=== PATIENT | male | born 1990 | race Caucasian/White ===

== ENCOUNTER 2018-09-12 13:58 | Emergency (ER) | payer SELFPAY ==
[2018-09-12 14:04] VITALS: BP 136/79; PULSE 90; RESP 18; TEMP 36.4; O2SAT 97
--- NOTE | 2018-09-12 14:11 | DI.RAD.S_ITS ---
PROCEDURE: XR FINGER LT MIN 2V INDICATIONS: screw injury TECHNIQUE: AP hand, 2 views of the 3rd digit acquired. COMPARISON: None. FINDINGS: Bones: No fractures or dislocations. No suspicious bony lesions. Soft tissues: No radiopaque foreign body. No suspicious soft tissue calcifications. There is soft tissue swelling of the 3rd digit distally. IMPRESSION: 1. No fracture or radiopaque foreign body. Dictated by: Geremias Pearson M.D. on 09/12/2018 at 14:47 Approved by: Geremias Pearson M.D. on 09/12/2018 at 14:48
--- NOTE | 2018-09-12 15:28 | ED.UPPEXIN ---
HPI - Extremity Injury (Upper) <TERRA Reina - Last Filed: 09/12/18 22:24> General Chief Complaint: Extremity Injury, Upper Stated Complaint: L MIDDLE FINGER LAC Time Seen by Provider: 09/12/18 15:20 Source: patient Mode of arrival: ambulatory Limitations: no limitations History of Present Illness HPI narrative: 28-year-old male presents emergency department today complaining of a left 3rd finger laceration that occurred after attempting to screw 2 boards together, the screw was longer than the boards and came out the other causing a laceration to his finger. Patient states his last tetanus was last year, states bleeding is controlled and he was worried about bone injury. Denies numbness, tingling, excessive bleeding, decreased range of motion, erythema, or discharge from the wound. Related Data Home Medications Medication Instructions Recorded Confirmed ibuprofen 400 mg PO TID #0 03/29/16 Previous Rx's Medication Instructions Recorded hydrocodone-acetaminophen [[place]] 1 - 2 tab PO Q6H PRN #12 tab 03/29/16 Allergies Allergy/AdvReac Type Severity Reaction Status Date / Time No Known Allergies Allergy Uncoded 06/11/17 13:02 Review of Systems <TERRA Reina - Last Filed: 09/12/18 22:24> Review of Systems REVIEW OF SYSTEMS: GENERAL: Denies fever or chills. HENT: Denies head trauma. EYE: Denies double vision or vision loss. CARDIOVASCULAR: Denies syncope. MUSCULOSKELETAL: Denies weakness, or deformities. INTEGUMENTARY: Complains of laceration, see HPI. NEURO: Denies numbness or tingling. PFSH <TERRA Reina - Last Filed: 09/12/18 22:24> Medical History No significant medical problems (Acute) Social History Smoking Status: Current every day smoker Social History Smoking Status: Current every day smoker Exam <TERRA Reina - Last Filed: 09/12/18 22:24> Initial Vital Signs Initial Vital Signs: Vital Signs Temperature 97.5 F L 09/12/18 14:04 Pulse Rate 90 09/12/18 14:04 Respiratory Rate 18 09/12/18 14:04 Blood Pressure 136/79 09/12/18 14:04 Pulse Oximetry 97 09/12/18 14:04 PHYSICAL EXAMINATION: GENERAL: Well groomed, alert, and cooperative. Answers questions promptly and appropriately. Vital signs noted. HENT: Normocephalic, atraumatic. RESPIRATORY: Normal respiratory rate, trachea midline, airway patent. No stridor, nasal flaring or accessory muscle use. MUSCULOSKELETAL: Normal gait and coordination. Equal tone and mass bilaterally. Full range of motion of all fingers. EXTREMITIES: CMS intact. Moves all extremities. SKIN: Warm, dry, soft, appropriate color for ethnicity. 2cm laceration to left 3rd finger. Wound bed pink with coagulation present. Bleeding controlled. No surrounding erythema. Extensively irrigated with soap and water, area around the wound cleaned with Betadine, glue applied per patient request. Steri-Strips applied to reinforce area. NEURO: Alert and Oriented X 3. Good coordination. PSYCH: Appropriate affect and mood. <Brooklyn Blake DO - Last Filed: 09/15/18 18:44> Initial Vital Signs Initial Vital Signs: Vital Signs Temperature 97.5 F L 09/12/18 14:04 Pulse Rate 90 09/12/18 14:04 Respiratory Rate 18 09/12/18 14:04 Blood Pressure 136/79 09/12/18 14:04 Pulse Oximetry 97 09/12/18 14:04 Course <TERRA Reina - Last Filed: 09/12/18 22:24> Course Narrative: After discussion with patient at a stitch could be applied to the wound or glue could be applied patient stated he would rather have his finger glue. Orders Ordered: ED Orders 09/12/18 14:11 XR finger LT min 2V Stat Vital Signs - 8 hr 09/12/18 15:54 Pulse Rate 68 Respiratory Rate 18 Blood Pressure 130/87 Pulse Oximetry 98 <Brooklyn Blake DO - Last Filed: 09/15/18 18:44> Orders Ordered: ED Orders 09/12/18 14:11 XR finger LT min 2V Stat Vital Signs - 8 hr 09/12/18 15:54 Pulse Rate 68 Respiratory Rate 18 Blood Pressure 130/87 Pulse Oximetry 98 MDM - Extremity Injury (Upper) <Kamini JohnsonTERRA echavarria - Last Filed: 09/12/18 22:24> Medical Records Attestation: I reviewed the patient's medical records. Lab Data Attestation: I reviewed the patient's lab results. MDM Narrative Medical decision making narrative: Simple repair of simple laceration without evidence of infection. Follow-up instructions were given, return precautions are given. Discharge Plan Departure Patient Disposition: Home Clinical Impression: Finger laceration Qualifiers: Encounter type: initial encounter Finger: middle finger Damage to nail status: without damage Foreign body presence: without foreign body Laterality: left Qualified Code(s): S61.213A - Laceration without foreign body of left middle finger without damage to nail, initial encounter Discharge Date/Time: 09/12/18 15:55 Interventions: ED Discharge Assessment Last Done: 09/12/18 15:54 Instructions: DI for Laceration Repair Activity Restrictions/Additional Instructions: Thank you for entrusting me with your care today. As discussed, I placed glue and Steri-Strips on the wound. Do not pull anything off the wound. Do not get your hand wet for 24 hours. Please follow up with her primary care provider if needed. Return to the emergency department if you develops increased swelling, purulence discharge, fevers, chills, or other signs of infection. Prescriptions: No Action ibuprofen 400 MG tablet 400 mg PO TID Qty: 0 RF: 0 hydrocodone-acetaminophen [[place]] 5 MG/325 MG tablet 1 - 2 tab PO Q6H PRNQty: 12 RF: 0 <Brooklyn Blake DO - Last Filed: 09/15/18 18:44> Cosign ED Attending Cosignature Attestation: I was immediately available in the department for consultation. This documentation has been reviewed and I agree with assessment and plan. Supervised by Brooklyn Blake DO
[2018-09-12 15:54] VITALS: BP 130/87; PULSE 68; RESP 18; O2SAT 98
--- NOTE | 2018-09-12 15:56 | PC.NURSE ---
sterit strips and tube gauze applied
== END 2018-09-12 15:55 | disposition home or self-care (01) ==
PROVIDERS: Emergency Provider Nurse Practitioner
DX: S61.213A Laceration without foreign body of left middle finger without damage to nail, initial encounter (principal); W26.8XXA Contact with other sharp object(s), not elsewhere classified, initial encounter
CPT/HCPCS: 73140; 99283

== ENCOUNTER 2019-09-18 13:26 | Emergency (ER) | payer OTHER, MEDICAID, SELFPAY ==
[2019-09-18] VITALS (8 sets, daily range): BP systolic 133; BP diastolic 96; PULSE 61–98; RESP 22; TEMP 37.3; O2SAT 96–98
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
[2019-09-18] MEDS: IBUPROFEN 400 MG TABLET PO (14:21)
[2019-09-18] MEDS: OXYCODONE/ACETAMINOPHEN 5/325 TABLET 1 TAB PO ×2 (14:21→16:17)
[2019-09-18] MEDS: ACETAMINOPHEN 325 MG TABLET PO (14:22)
--- NOTE | 2019-09-18 14:35 | PC.NURSE ---
Patient c/o 9/10 pain, left top of foot, ankle and knee. Patient is restless, moaning, and cursing. Pulses palpable, no bruising noted but swelling is visible. Ice pack applied. Prescribed pain medications passed. Patient heading to XRAY at this time.
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
--- NOTE | 2019-09-18 15:12 | DI.CT.S_ITS ---
PROCEDURE: CT LE LT W CON INDICATIONS: left complex foot fracture TECHNIQUE: Noncontrast 1-1.5 mm axial sections acquired from above the tibiotalar joint to the bottom of the calcaneus, with coronal and sagittal reformats. COMPARISON: None. FINDINGS: Image quality: Excellent. Bones: There is a minimally displaced posterior malleolar fracture. Medial and lateral malleoli are intact. A small avulsion fracture is present off the posterior aspect of the talus. There is a comminuted, displaced fracture of the calcaneal beak. A fracture extends posteriorly to the medial aspect of the calcaneus posterior to the sustentacular lai. There is a markedly comminuted, displaced fracture of the navicular bone which has a shattered appearance. There is a comminuted, displaced fracture of the medial cuneiform which extends into the TMT joint space. No other fractures or dislocations. Soft tissues: Marked soft tissue swelling overlies the midfoot. There is a large tibiotalar joint effusion. IMPRESSION: 1. Multiple comminuted intra-articular fractures of the distal tibia, talus, calcaneus, navicular, and medial cuneiform bones. Dictated by: Roma Sanchez M.D. on 09/18/2019 at 15:45 Approved by: Roma Sanchez M.D. on 09/18/2019 at 15:52
--- NOTE | 2019-09-18 17:36 | PC.NURSE ---
Provided patient with crutches and instructed how to use them properly.
== END 2019-09-18 17:39 | disposition home or self-care (01) ==
PROVIDERS: Emergency Provider Nurse Practitioner Family
DX: S92.252A Displaced fracture of navicular [scaphoid] of left foot, initial encounter for closed fracture (principal); S92.032A Displaced avulsion fracture of tuberosity of left calcaneus, initial encounter for closed fracture; S82.302A Unspecified fracture of lower end of left tibia, initial encounter for closed fracture; S92.102A Unspecified fracture of left talus, initial encounter for closed fracture; V86.59XA Driver of other special all-terrain or other off-road motor vehicle injured in nontraffic accident, initial encounter
CPT/HCPCS: 73590; 73610; 73630; 73700; 99284

== ENCOUNTER → 2019-09-24 09:51 | Outpatient (CLI) | payer OTHER, SELFPAY ==
[2019-09-26 02:37] LABS: COVID19 Sendout Not Detected (Not Detect)
== END ==
PROVIDERS: Visit Provider Physician Assistant
DX: Z01.818 Encounter for other preprocedural examination (principal)
CPT/HCPCS: 87635

== ENCOUNTER 2019-09-27 09:53 | Day surgery (SDC) | payer OTHER, MEDICAID, SELFPAY ==
[2019-09-27] VITALS (11 sets, daily range): BP systolic 119–153; BP diastolic 76–95; PULSE 64–106; RESP 8–18; TEMP 36.7–37; O2SAT 94–98; BMI 24.4
--- NOTE | 2019-09-27 | DI.RAD.S_ITS ---
PROCEDURE: XR FOOT LT MIN 3V INDICATIONS: LEFT FOOT ORIF TECHNIQUE: Single intraoperative fluoroscopic view of the left foot is provided COMPARISON: [facility], , XR FOOT LT MIN 3V, 09/18/2019, 14:30. FINDINGS: Single intraoperative fluoroscopic view of the left foot demonstrates internal fixation hardware and instrumentation. Fracture planes are not well characterized. Fracture fragment displacement cannot be accurately assessed IMPRESSION: Single nondiagnostic intraoperative fluoroscopic view of the left foot demonstrates internal fixation hardware and instrumentation. Dictated by: Ryan Cooper M.D. on 09/27/2019 at 16:06 Approved by: Ryan Cooper M.D. on 09/27/2019 at 16:07
[2019-09-27] MEDS: LACTATED RINGERS 1,000 ML 42 ML IV ×2 (11:15→14:36)
--- NOTE | 2019-09-27 11:16 | PM.PREOP ---
Pre-operative Note COVID-19 COVID-19 status: Negative Result date/Date tested (Pos, Neg/Pending): 09/24/19 Interval Note History & Physical reviewed/Exam performed by Physician: Yes Changes to H&P: No
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
[2019-09-27] MEDS: fentaNYL 100 MCG/2 ML INJ 50 MCG IV ×2 (12:35→12:42)
[2019-09-27] MEDS: MIDAZOLAM 2 MG/2 ML VIAL IV (12:35)
--- NOTE | 2019-09-27 12:46 | SUR.PREOP ---
Block start time [1240] . Monitoring initiated and maintained throughout procedure. Oxygen and medications given per anesthesiologist instructions. Patient remained stable throughout procedure, no adverse reactions noted. Block end time [1246].
[2019-09-27] MEDS: CEFAZOLIN 2 GM/100 ML FROZ.PIGGY IV (12:55)
--- NOTE | 2019-09-27 13:27 | SUR.OPER ---
Supine on padded OR bed, head on pillow, arms secured on padded arm boards at <90 degrees abduction, legs uncrossed, safety belt at thigh, tape over blanket over lower legs.
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
[2019-09-27] MEDS: MEPERIDINE 50 MG/ML INJ 25 MG IV ×2 (16:25→16:44)
--- NOTE | 2019-09-27 16:49 | SUR.PHASEI ---
Very drowsy, arousing spontaneously. Denies nausea. No surgical pain, only pain in his left knee. Ice pack behind and on top of left knee. pt expressed Thanks, ladies.'
--- NOTE | 2019-09-27 17:21 | SUR.PHASEI ---
Voided large quanity on bedside commode. transferred non-weight bearing, 2 RNs standby. Discussed pain management when the block begins to wear off.
--- NOTE | 2019-09-27 17:42 | SUR.PHASEII ---
1736 Drowsy, denies surgical pain, only has left knee pain 3/. Splint CDI, toes pink, warm, rapid refill. SO familiar with care, verbalizes comfort in caring for him. Transferred well into wheelchair on RLE. ice packs given for ride home. Denies nausea. Stable, no questions/concerns. To car in by Kevin Ellison RN. Stable
--- NOTE | 2019-09-27 17:46 | SUR.PHASEII ---
late entry - discharge papers taken to [facility] by Nereyda Brooks RN while the patient remained in PACU.
== END 2019-09-27 17:37 | disposition home or self-care (01) ==
PROVIDERS: Referring Provider Orthopaedic Surgery Foot and Ankle Surgery; Visit Provider Orthopaedic Surgery Foot and Ankle Surgery
PROC: (CPT 28485; principal; 2019-09-27 12:00)
DX: S92.252A Displaced fracture of navicular [scaphoid] of left foot, initial encounter for closed fracture (principal); S92.232A Displaced fracture of intermediate cuneiform of left foot, initial encounter for closed fracture; S82.392A Other fracture of lower end of left tibia, initial encounter for closed fracture; S92.025A Nondisplaced fracture of anterior process of left calcaneus, initial encounter for closed fracture; V29.3XXA Motorcycle rider (driver) (passenger) injured in unspecified nontraffic accident, initial encounter; Y93.89 Activity, other specified; Y92.89 Other specified places as the place of occurrence of the external cause; F17.210 Nicotine dependence, cigarettes, uncomplicated
CPT/HCPCS: 28465 ×3; 64450; 73630; 76000; J0690; J1100; J2175; J2250; J2405; J2704; J3010

== ENCOUNTER → 2019-12-06 13:34 | Outpatient (CLI) | payer OTHER, MEDICAID, SELFPAY ==
[2019-12-07 07:40] LABS: COVID19 Sendout Not Detected (Not Detect)
== END ==
PROVIDERS: Visit Provider Physician Assistant
DX: Z11.59 Encounter for screening for other viral diseases (principal)
CPT/HCPCS: 87635

== ENCOUNTER 2019-12-08 11:51 | Day surgery (SDC) | payer OTHER, MEDICAID, SELFPAY ==
[2019-12-03 08:45] VITALS: BMI 24.4
[2019-12-08] VITALS (8 sets, daily range): BP systolic 116–141; BP diastolic 66–101; PULSE 68–89; RESP 9–16; TEMP 36.4–36.9; O2SAT 97–99; BMI 24.4
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
[2019-12-08] MEDS: CEFAZOLIN 2 GM/100 ML FROZ.PIGGY IV (13:23)
[2019-12-08] MEDS: BUPIVACAINE 0.25% W/ EPI 30 ML VIAL INJ (13:51)
[2019-12-08] MEDS: OXYCODONE/ACETAMINOPHEN 5/325 TABLET 1 TAB PO (14:19)
--- NOTE | 2019-12-08 14:35 | SUR.PHASEI ---
arrived to pacu arousing spontaneously, shivering. Denied pain or nausea. Shivering resolved shortly. Water given for C/O dry mouth, then appleasauce in prep for PO Rx. Currently dozing intermittently, C/O the top of the left foot throbbing - which is beginning to improve.
--- NOTE | 2019-12-08 14:51 | SUR.PHASEI ---
Report given to Kevin Perez RN. Pt's called. Declines more fluids, pleasant, expressed appreciation for care.
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
== END 2019-12-08 15:51 | disposition home or self-care (01) ==
PROVIDERS: Referring Provider Orthopaedic Surgery Foot and Ankle Surgery; Visit Provider Orthopaedic Surgery Foot and Ankle Surgery
PROC: (CPT 20680; principal; 2019-12-08 13:15)
DX: Z47.2 Encounter for removal of internal fixation device (principal); S92.252A Displaced fracture of navicular [scaphoid] of left foot, initial encounter for closed fracture; S92.232A Displaced fracture of intermediate cuneiform of left foot, initial encounter for closed fracture; S92.025A Nondisplaced fracture of anterior process of left calcaneus, initial encounter for closed fracture; S82.392A Other fracture of lower end of left tibia, initial encounter for closed fracture; V86.59XA Driver of other special all-terrain or other off-road motor vehicle injured in nontraffic accident, initial encounter
CPT/HCPCS: 20680; 73620; 76000; J0690; J1100; J2250; J2405; J2704; J3010

== ENCOUNTER 2020-02-02 13:45 | Outpatient (RCR) | payer OTHER, MEDICAID, SELFPAY ==
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
== END 2020-02-11 10:01 ==
LOC: PHYS 13:45
PROVIDERS: PCP Orthopaedic Surgery Foot and Ankle Surgery; Referring Provider Orthopaedic Surgery Foot and Ankle Surgery; Visit Provider Orthopaedic Surgery Foot and Ankle Surgery
DX: S92.252A Displaced fracture of navicular [scaphoid] of left foot, initial encounter for closed fracture (principal); S82.142A Displaced bicondylar fracture of left tibia, initial encounter for closed fracture; S82.392A Other fracture of lower end of left tibia, initial encounter for closed fracture; S92.015A Nondisplaced fracture of body of left calcaneus, initial encounter for closed fracture
CPT/HCPCS: 97110; 97140; 97161; 97535

== ENCOUNTER → 2020-03-29 09:49 | Outpatient (CLI) | payer OTHER, MEDICAID, SELFPAY ==
[2020-03-29 11:48] LABS: COVID19 -Nasal RAPID Negative (Negative)
== END ==
PROVIDERS: PCP Family Medicine; Visit Provider Nurse Practitioner
DX: Z20.822 Contact with and (suspected) exposure to COVID-19 (principal)
CPT/HCPCS: 87635

== ENCOUNTER 2020-03-31 09:27 | Day surgery (SDC) | payer OTHER, MEDICAID, SELFPAY ==
[2020-03-31] VITALS (11 sets, daily range): BP systolic 103–151; BP diastolic 58–100; PULSE 57–108; RESP 10–15; TEMP 36.4–36.7; O2SAT 94–100; BMI 23.7
[2020-03-31] MEDS: LACTATED RINGERS 1,000 ML 42 ML IV ×3 (11:04→16:28)
[2020-03-31] MEDS: GABAPENTIN 300 MG CAPSULE PO (11:09)
[2020-03-31] MEDS: ACETAMINOPHEN 325 MG TABLET 975 MG PO (11:09)
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
--- NOTE | 2020-03-31 11:45 | PM.PREOP ---
Pre-operative Note COVID-19 COVID-19 status: Negative Interval Note History & Physical reviewed/Exam performed by Physician: Yes Changes to H&P: No
--- NOTE | 2020-03-31 12:00 | DI.RAD.S_ITS ---
PROCEDURE: XR FOOT LT MIN 3V INDICATIONS: LEFT FOOT REPAIR TECHNIQUE: 3 views of the foot were acquired. COMPARISON: [facility], CR, XR FOOT LT MIN 3V, 09/27/2019, 14:18. [facility], CR, XR FOOT 3 VIEWS WEIGHT BEARING LEFT, 03/15/2020, 10:08. [facility], CR, XR FOOT LT 2V, 12/08/2019, 13:50. FINDINGS: Bones: Intraoperative images again demonstrate fixation plate and screws across the talar tarsonavicular joint which appear grossly intact. 2 additional screws been placed across the talar tarsonavicular joint. New fixation plate and screws have been placed involving the calcaneocuboid Mild joint narrowing with periarticular osteophyte formation. Soft tissues: No tibiotalar joint effusion. Achilles tendon appears normal. IMPRESSION: Fluoroscopic images demonstrate 2 additional screws cross the tarsonavicular joint and a fixation plate and screw fusing the calcaneocuboid. Dictated by: Aubrey LACEY Interpreted: Tamir Hassan MD on 03/31/2020 at 15:27 Approved by: Tamir Hassan M.D. on 03/31/2020 at 17:27
[2020-03-31] MEDS: CEFAZOLIN 2 GM/100 ML FROZ.PIGGY IV (12:05)
--- NOTE | 2020-03-31 12:08 | SUR.PREOP ---
Block start time [1157] . Monitoring initiated and maintained throughout procedure. Oxygen and medications given per anesthesiologist instructions. Patient remained stable throughout procedure, no adverse reactions noted. Block end time [1200 ].
[2020-03-31] MEDS: BUPIVACAINE 0.25% W/ EPI (PF) 10 ML VIAL 20 ML INJ (12:35)
--- NOTE | 2020-03-31 12:40 | SUR.OPER ---
Supine on padded OR bed, head on pillow, arms secured on padded arm boards at <90 degrees abduction, legs uncrossed, safety belt across abdomen, tape over blanket over nonoperative leg, bump under operative side hip.
[2020-03-31] MEDS: fentaNYL 100 MCG/2 ML INJ IV ×2 (15:43→15:52)
[2020-03-31] MEDS: ONDANSETRON 4 MG/2 ML INJ IV (15:43)
--- NOTE | 2020-03-31 16:17 | SUR.PHASEI ---
Patient c/o bilateral jaw pain and states that he cannot close his mouth. Patient states this has happened before. Suction at bedside to assist with secretions. No respiratory distress noted. Anesthesiology to bedside to evaluate.
--- NOTE | 2020-03-31 16:42 | SUR.PHASEI ---
1630 Anesthesiology at [facility] to administer propofol in order to reduce jaw dislocation. Able to reduce jaw dislocation after two attempts. Placed patient on oxygen via simple face mask at 6 liters due to propofol.
== END 2020-03-31 17:48 | disposition home or self-care (01) ==
PROVIDERS: PCP Family Medicine; Referring Provider Orthopaedic Surgery Foot and Ankle Surgery; Visit Provider Orthopaedic Surgery Foot and Ankle Surgery
PROC: (CPT 27870; principal; 2020-03-31 11:15)
DX: M19.172 Post-traumatic osteoarthritis, left ankle and foot (principal); S92.252S Displaced fracture of navicular [scaphoid] of left foot, sequela; M87.075 Idiopathic aseptic necrosis of left foot; M79.672 Pain in left foot; S92.232 Displaced fracture of intermediate cuneiform of left foot; S92.025S Nondisplaced fracture of anterior process of left calcaneus, sequela; S82.392S Other fracture of lower end of left tibia, sequela; V29 Motorcycle rider injured in other and unspecified transport accidents
CPT/HCPCS: 28715; 20902; 20680; 64450; 73630; 76000; J0690; J1100; J2250; J2405; J2704; J3010

== ENCOUNTER → 2024-06-28 13:20 | Outpatient (CLI) | payer OTHER, SELFPAY ==
[2024-06-28 14:16] LABS: COVID-19 CEPHEID 4-PLEX PCR Negative (Negative); Influenza A - CEPHEID Flu A NEGATIVE (NEGATIVE); Influenza B - CEPHEID Flu B NEGATIVE (NEGATIVE); Respiratory Syncytial Virus Negative (Negative)
== END ==
PROVIDERS: Visit Provider Nurse Practitioner Family
DX: J02.9 Acute pharyngitis, unspecified (principal); R05.1 Acute cough
CPT/HCPCS: 87635; 87400; 87420; 0241U; 87070